=== PATIENT | female | born 2000 | race American Indian/Alaskan Native ===

== ENCOUNTER 2021-08-18 20:37 | Emergency (ER) | payer SELFPAY ==
--- NOTE | 2021-08-18 22:08 | Emergency Department Report ---
<ALEXSANDRAMARIELARRY ZULETAAmador - Last Filed: 08/18/21 22:03> ED Psych HPI - General Stated Complaint: PANIC ATTACK/MH Time Seen by Provider: 08/18/21 21:58 Source: patient, EMS - History of Present Illness Initial Comments: Patient is 21 years old female with history of previous suicidal attempt by cutting herself. Patient brought to the emergency room via EMS from home for mental health evaluation. Family called EMS for patient being agitated and trying to run away. EMS reported that when arrived patient was in a panicky mood and very agitated and have to be sedated with Versed, Haldol and Benadryl. Upon arrival to the ER patient is drowsy however she is able to answer questions appropriately. She stated that she has been very depressed recently and she is thinking about killing herself but she does not have a plan. Patient denied any homicidal ideation. She also denied any visual or auditory hallucination. MD Complaint: suicidal ideation, altered mental status Associated Psychiatric Symptoms: depression, suicidal ideation Quality: constant Associated Symptoms: denies other symptoms If Self Harm: admits thoughts of ED Review of Systems Comment: All other systems reviewed and negative Constitutional: denies: chills, fever Respiratory: denies: cough, shortness of breath, SOB with exertion, SOB at rest Cardiovascular: denies: chest pain, palpitations, dyspnea on exertion Gastrointestinal: denies: abdominal pain, nausea, vomiting, diarrhea, constipation, hematemesis, melena, hematochezia Musculoskeletal: denies: back pain Neurological: denies: headache, weakness, numbness, paresthesias, confusion Psychiatric: depression, suicidal thoughts. denies: auditory hallucinations, visual hallucinations, homicidal thoughts ED Physical Exam - General General appearance: alert, in no apparent distress - Head Head exam: Present: atraumatic, normocephalic, normal inspection - Eye Eye exam: Present: normal appearance - ENT ENT exam: Present: normal exam, normal orophraynx, mucous membranes moist - Neck Neck exam: Present: normal inspection, full ROM. Absent: tenderness, meningismus - Respiratory Respiratory exam: Present: normal lung sounds bilaterally - Cardiovascular Cardiovascular Exam: Present: regular rate, normal rhythm, normal heart sounds - GI/Abdominal GI/Abdominal exam: Present: soft, normal bowel sounds. Absent: distended, tenderness, guarding, rebound, rigid, organomegaly, mass, bruit, pulsatile mass, hernia - Extremities Exam Extremities exam: Present: normal inspection, full ROM, normal capillary refill. Absent: tenderness, pedal edema, joint swelling, calf tenderness - Back Exam Back exam: Present: normal inspection, full ROM. Absent: CVA tenderness (R), CVA tenderness (L) - Neurological Exam Neurological exam: Present: alert, oriented X3, CN II-XII intact, normal gait, reflexes normal. Absent: motor sensory deficit - Psychiatric Psychiatric exam: Present: depressed, suicidal ideation. Absent: anxious, flat affect, manic, homicidal ideation - Skin Skin exam: Present: warm, intact, normal color ED Disposition Clinical Impression: Anxiety Disposition: HOME / SELF CARE / HOMELESS Is pt being admited?: No Condition: Stable Instructions: Managing Anxiety, Adult Prescriptions: Escitalopram [Lexapro] 5 mg PO QDAY #30 hydrOXYzine PAMOATE [Vistaril] 25 mg PO BID PRN #60 capsule PRN Reason: Anxiety Referrals: NGHIA LU MD [Primary Care Provider] - 3-5 Days Print Language: MALAGASY <DENI LOVE - Last Filed: 08/19/21 12:13> ED Review of Systems ROS: Stated complaint: PANIC ATTACK/MH Other details as noted in HPI ED Course Vital Signs 08/18/21 08/18/21 08/18/21 20:38 22:00 22:41 Temperature 98 F Pulse Rate 82 Respiratory 16 Rate Blood Pressure 106/67 [Left] O2 Sat by Pulse 100 98 98 Oximetry 08/19/21 08/19/21 02:33 11:12 Temperature 98.4 F 98.9 F Pulse Rate 81 100 H Respiratory 16 20 Rate Blood Pressure 102/55 113/79 [Left] O2 Sat by Pulse 99 99 Oximetry ED Medical Decision Making - Lab Data Result diagrams: 08/18/21 22:38 08/18/21 22:38 Critical care attestation.: If time is entered above; I have spent that time in minutes in the direct care of this critically ill patient, excluding procedure time. ED Disposition Does the pt Need Aspirin: No Time of Disposition: 12:15
[2021-08-18 23:29] LABS: Basophils % (Auto) 0.5 % (0.0-1.8); Eosinophils # (Auto) 0.1 K/mm3 (0.0-0.4); Eosinophils % (Auto) 0.8 % (0.0-4.3); Hematocrit 35.4 % (30.3-42.9); Hemoglobin 11.1 gm/dl (10.1-14.3); Lymphocytes # (Auto) 1.4 K/mm3 (1.2-5.4); Lymphocytes % (Auto) 17.3 % (13.4-35.0); Mean Corpuscular HGB Conc 32 % (30-34); Mean Corpuscular Volume 75 fl (79-97); Monocytes # (Auto) 0.7 K/mm3 (0.0-0.8); Monocytes % (Auto) 8.9 % (0.0-7.3); Platelet Count 273 K/mm3 (140-440); Red Cell Distribution Width 16.4 % (13.2-15.2)
[2021-08-18 23:41] LABS: BUN/Creatinine Ratio 16; Blood Urea Nitrogen 14 mg/dL (7-17); Calcium 8.4 mg/dL (8.4-10.2); Hemolysis Index 7
[2021-08-19 05:30] LABS: Amorphous Crystals,Urine Few; Bacteria,Urine 1+ /HPF (Negative); Bilirubin,Urine NEG (Negative); Blood,Urine LG (Negative); Color,Urine Yellow (Yellow); Hyaline Casts,Urine 1 /LPF; Mucus,Urine 3+ /HPF; Urobilinogen,Urine < 2.0 mg/dL (<2.0)
[2021-08-19 05:32] LABS: Amphetamine Screen,Urine Negative; Cannabinoid Screen,Urine Negative; Cocaine Screen,Urine Negative; Methadone Screen,Urine Negative; Opiate Screen,Urine Negative
[2021-08-19 05:50] LABS: Benzodiazepines Screen,Urine Positive
[2021-08-19 11:13] VITALS: BP 113/79
--- NOTE | 2021-08-19 11:39 | Consultation ---
History of Present Illness - Reason for Consult Consult date: 08/19/21 Reason for consult: panic attack - History of Present Psychiatric Illness The patient was seen today. She is calm, cooperative and polite. She says she came in for a bad panic attack. She says her uncle called. The patient says "I usually can control it but this time it got too bad." She says when she gets stressed she starts to have these attacks. The patient denies feeling suicidal. She did admit to cutting after talking to her, but states it was on her leg and it has been months. She says she has never seen a psychiatrist nor has she ever been on any psych medications. She denies ever being admitted into a psych facility. The patient denies any illicit drug use, alcohol or nicotine. I ask the patient why was she trying to run away. She says "I wasn't really trying to run away but they were over crowding me so I was trying to get away from them." PAST PSYCHIATRIC HISTORY Diagnoses: Denies Suicide attempts or Self-harm behavior: Denies Prior psychiatric hospitalizations: Denies Substance Abuse history: Denies Previous psychiatric medications tried: Denies Outpatient treatment: Denies PAST MEDICAL HISTORY: None reported Family Psychiatric History: None reported or documented SOCIAL HISTORY Living arrangement: with family Marital status: Single Employment status: Unemployed REVIEW OF SYSTEMS Constitutional: Negative for weight loss ENT: Negative for stridor Respiratory: Negative for cough or hemoptysis All other systems reviewed and are negative MENTAL STATUS EXAMINATION General Appearance and Behavior: Age appropriate, good hygiene, wearing appropriate clothes, good eye contact, calm, cooperative, polite Cooperation: Participating/engaged, but Guarded Psychomotor Behavior: Psychomotor normal Mood: good Affect and affective range: congruent with stated mood Thought Process: goal directed Thought Content: None Speech: Normal tone and pace Suicidal Ideation: Denies Homicidal Ideation: Denies Hallucinations: Denies Delusions: None elicited Impulse Control: Normal Insight and Judgment: Limited insight and judgment Memory: Limited Attention: attentive Orientation: Alert, oriented Assessment and Plan Generalized Anxiety Disorder Treatment Plan d/c 1013 Lexapro 5mg po daily Vistaril 25mg po BID prn anxiety Sitter: per primary Medical: defer to primary Disposition: Do not recommend acute psychiatric inpatient treatment. The patient understands that if SI/HI arise, she is to seek immediate assistance. The automatic equipment technician to give the patient all necessary resources for the patient to establish outpatient care The automatic equipment technician to further document safety plan. Will sign off. Thanks Case staffed with Dr. Clements Medications and Allergies Allergies Allergy/AdvReac Type Severity Reaction Status Date / Time No Known Allergies Allergy Unverified 08/19/21 09:20 Home Medications Medication Instructions Recorded Confirmed Last Taken Type Escitalopram [Lexapro] 5 mg PO QDAY #30 08/19/21 Unknown Rx hydrOXYzine PAMOATE [Vistaril] 25 mg PO BID PRN #60 capsule 08/19/21 Unknown Rx Mental Status Exam - Vital signs Last Vital Signs Temp 98.9 F 08/19/21 11:12 Pulse 100 H 08/19/21 11:12 Resp 20 08/19/21 11:12 BP 113/79 08/19/21 11:12 Pulse Ox 99 08/19/21 11:12 Results Result Diagrams: 08/18/21 22:38 08/18/21 22:38 Abnormal lab results 08/18/21 08/18/21 08/18/21 Range/Units 22:38 22:38 22:38 MCV 75 L (79-97) fl MCH 24 L (28-32) pg RDW 16.4 H (13.2-15.2) % [place] % (Auto) 8.9 H (0.0-7.3) % Seg Neutrophils % 72.5 H (40.0-70.0) % Urine WBC (Auto) (0.0-6.0) /HPF Salicylates < 0.3 L (2.8-20.0) mg/dL Acetaminophen 5.0 L (10.0-30.0) ug/mL 08/19/21 Range/Units 04:20 MCV (79-97) fl MCH (28-32) pg RDW (13.2-15.2) % [place] % (Auto) (0.0-7.3) % Seg Neutrophils % (40.0-70.0) % Urine WBC (Auto) 18.0 H (0.0-6.0) /HPF Salicylates (2.8-20.0) mg/dL Acetaminophen (10.0-30.0) ug/mL All other labs normal.
--- NOTE | 2021-08-19 12:48 | Emergency Department Report ---
Blank Doc - Documentation Documentation: I saw the patient. Patient was brought to the emergency department on yesterday with concern for suicidal ideations. Patient states that she has not suicidal. Patient's 1013 has been rescinded by psychiatry. Patient is up for discharge and resources have been provided to the patient.
== END 2021-08-19 12:39 | disposition home or self-care (01) ==
LOC: ED 20:37
DX: F41.9 Anxiety disorder, unspecified (principal); F32.9 Major depressive disorder, single episode, unspecified; Z79.899 Other long term (current) drug therapy
CPT/HCPCS: 36415; 80048; 80307; 80320; 81001; 84703; 85025; 87086; 99284; G0480